=== PATIENT | male | born 1985 ===

== ENCOUNTER 2021-07-05 13:25 | Outpatient (CLI) | payer BC, SELFPAY ==
--- NOTE | ~2021-07-05 | US_ITS ---
US scrotum doppler INDICATION: Scrotal mass TECHNIQUE: Testicular sonogram utilizing grayscale and color Doppler FINDINGS: The testes are normal in size and appearance. No focal lesions are seen. The right testes measures 3.9 x 2.2 x 3.3 cm centimeters, and the left testis measures 3.7 x 1.7 x 3.1 cm cm. There is normal vascular flow to both testes. The right and left epididymides appear normal. There is a right varicocele. IMPRESSION: 1. Right varicocele. Reviewed, dictated and finalized at location A. IMPRESSION: 1. Right varicocele.
== END 2021-07-05 13:26 ==
PROVIDERS: PCP Internal Medicine; Visit Provider Internal Medicine
DX: N50.89 Other specified disorders of the male genital organs (principal); I86.1 Scrotal varices
CPT/HCPCS: 76870; 93976

== ENCOUNTER 2023-03-04 16:51 | Emergency (ER) | payer BC, SELFPAY ==
[2023-03-04 17:03] VITALS: BP 131/73; PULSE 66; RESP 20; TEMP 36.3; O2SAT 99
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
[2023-03-04] MEDS: ACETAMINOPHEN 500 MG TABLET 1000 MG PO (19:08)
[2023-03-04 19:20] VITALS: BP 130/87; PULSE 80; RESP 19; O2SAT 97
== END 2023-03-04 19:20 | disposition home or self-care (01) ==
LOC: ANHED 19:17
PROVIDERS: Emergency Provider Student in an Organized Health Care Education/Training Program; PCP Internal Medicine
DX: S00.01XA Abrasion of scalp, initial encounter (principal); V18.0XXA Pedal cycle driver injured in noncollision transport accident in nontraffic accident, initial encounter
CPT/HCPCS: 99282; A9270